=== PATIENT | female | born 1965 | race Caucasian/White ===

== ENCOUNTER 2018-10-02 09:30 | Outpatient (RCR) | payer OTHER, SELFPAY ==
--- NOTE | 2018-09-16 10:47 | HP.PTEVAL_ITS ---
Patient's Visit Information BROOK RAINEY is a 52 year old F referred to Physical Therapy by MANDEEP Haas with a diagnosis of Knee Pain. Date of Evaluation: 09/16/18 Physical Therapist: Lucia Pal - Visit Plan Frequency: 2x /Week Duration: 3 Weeks Plan: Focus on LE and core s/s- HEP as able. Possible meniscal tear- US as modality of choice - Subjective Subjective: Left knee pain for about a year-insidious onset- had a fall but then she was fine- Describes the pain as comes and goes. Pain is along the bottom of the knee cap- does swell but is inconsistent. Best: 0/10 Eases: stay off of it or massage it a little bit, anti-inflammatory. Agg: being on it all day (cleaning, cooking), driving, pushing on it Worst: 8/10. Describes the pain as dull and achy. Tender when she puts pressure on it. No radiating pain- No N/T. 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 PMhx: none meds: none. Did an x-ray on the knee showed nothing. No injections. Start therapy and see where to go from here. Sleep: yes- side sleeper and if it rubs together its painful. - Objective Posture: fair throughout treatment session- mild FH, RS- can correct with verbal cues. Gait: slightly antalgic- decreased stance time on the left LE- poor heel/toe pattern with decreased push off. Stairs: asc/desc 8 recip with 2 HR- asc uses UE for propulsion when left is on the step above. Desc 2 HR and patient comes down sideways. HR/TR: able with UE A but reports discomfort. SLS: 15 seconds then requires UE A- increased muscle activation and reports feels unstable. Palpation: tender along lateral joint line and distal patella. Observation: mild swelling. Special Test: Atilio: positive, Knee cap mobility: good. ROM: 10-120 degrees with discomfort at end range. Strength: Ankle: 5/5, Knee: 4/5 in available range but reports discomfort. Hip: 4/5 throughout and reports discomfort with IR/ER testing in the knee due to the position of the LE. Core: Fair. Flex: HS: mild, Gastroc: mild - Goals Goal 1:: Patient will be I with HEP and progression Goal Time Frame: 4-6 Weeks Goal 2:: Patient will ambulate >300 feet with a normalized gait pattern Goal Time Frame: 4-6 Weeks Goal 3:: Patient will asc/desc 8 stairs recip with 1 HR and good pattern Goal Time Frame: 4-6 Weeks Goal 4:: Patient will report 0/10 pain for 1 full day including working. Goal Time Frame: 4-6 Weeks - Rehabilitation Potential Physical Therapy Diagnosis: Patient presents with hypomobility- she has decreased painfree ROM, strength and muscular endurance. Atilio test is positive for possible meniscus tear- leading to abnormal gait and increased pain with ADL's. Rehabilitation Potential: Fair - Anticipated Interventions Patient/Client Instruction: Educate patient on: Benefits of Fitness Program Therapeutic Exercise to Include: Strength training, Endurance training, Balance training, Body mechanics, Postural training, Flexibilty training, Gait and locomotor training, Dynamic Lumbar Stabilization For the Purpose of:: To improve muscle performance and motor function TENS: Yes Cryotherapy (ice pack, ice massage): Yes Thermo therapy (hot pack): Yes Ultrasound (thermal/non thermal): Yes Thank you for the opportunity to evaluate your patient. For Medicare and Medicare HMO plans, please review the plan of care and approve it. It will need to be FAXED BACK to us at [phone] for Medicare purposes. Please let me know if there are questions or concerns regarding this plan of care. Physician Signature: Date:
--- NOTE | 2018-10-02 09:49 | HP.PTDCSUM_ITS ---
HP - PT D/C Summary It has been my pleasure to treat BROOK RAINEY under orders from MANDEEP Haas, for the diagnosis of Knee Pain for a total of 6 visit(s). Discharge Date: Please see the following information for a summary of their discharge status. - Subjective Subjective: Patient reports the knee is about the same- if she does a lot of activitiy it still really bothers her. Worst: 7/10 Agg: a lot of activity, stairs carrying boxes. Does not have an apt to see the MD - Pain L knee Pain Intensity (Out of 10): 1 - Overall Improvement % Improvement: 25 - Objective Objective/Function: Posture: fair throughout treatment session- mild FH, RS- can correct with verbal cues. Gait: no deviation noted Stairs: asc/desc 8 recip with 1 HR HR/TR: able with UE A but reports discomfort. SLS: 25 seconds then requires UE A- increased muscle activation and reports feels unstable. Palpation: tender along lateral joint line and distal patella. Observation: mi ld swelling. ROM: 10-120 degrees with discomfort at end range. Strength: Ankle: 5/5, Knee: 4+/5 Hip: 4+/5 throughout Core: Fair. Flex: HS: mild, Gastroc: mild - Goals Goal 1:: Patient will be I with [facility] and progression Goal Progress: Goal Met Goal 2:: Patient will ambulate >300 feet with a normalized gait pattern Goal Progress: Goal Met Goal 3:: Patient will asc/desc 8 stairs recip with 1 HR and good pattern Goal Progress: Progressing Goal 4:: Patient will report 0/10 pain for 1 full day including working. Goal Progress: Not Progressing - Plan Plan: [facility]charge to [facility] and return to MD for further evaluation - D/C Information If there are questions or concerns regarding this patient's physical therapy, please feel free to call me at [phone]. Thank you for the referral of this patient. Sincerely, Lucia Pal
== END 2018-10-02 10:04 | disposition home or self-care (01) ==
LOC: PT 09:30
PROVIDERS: Family Provider Family Medicine; PCP Family Medicine; Referring Provider Nurse Practitioner Family; Visit Provider Nurse Practitioner Family
DX: M25.562 Pain in left knee (principal)
CPT/HCPCS: 97035; 97110; 97161; 97164

== ENCOUNTER → 2019-02-20 15:51 | Outpatient (CLI) | payer OTHER, SELFPAY ==
--- NOTE | 2019-02-20 16:08 | EKG12_ITS ---
Test Reason : PRE-OP Blood Pressure : / mmHG Vent. Rate : 060 BPM Atrial Rate : 060 BPM P-R Int : 124 ms QRS Dur : 084 ms QT Int : 446 ms P-R-T Axes : 030 054 043 degrees QTc Int : 446 ms Normal sinus rhythm Normal ECG Confirmed by PAU BERMUDEZ, PAULINA ([id number]), online editor IRVING REILLY ([id number]) on 02/23/2019 9:26:12 AM Referred By: Tato Monzon Confirmed By:PAULINA MAI MD
[2019-02-20 16:30] LABS: Hematocrit 40.7 % (37-47); Hemoglobin 13.5 g/dl (12.0-15.0); Mean Corp Hgb Conc 33.2 g/gl (32-36); Mean Corpuscular Hgb 31.2 pg (27.0-32.0); Mean Platelet Vol. 10.7 fl (6.2-12.0); Platelet Count 191 K/mm3 (150-450); RBC Distribution Width CV 12.8 % (11.6-14.6); RBC Distribution Width SD 44.3 fl (35.1-43.9); Red Blood Count 4.33 M/mm3 (4.2-5.4); White Blood Count 5.5 K/mm3 (4.4-11.0)
[2019-02-20 16:49] LABS: Scan Indicated on CBC? Y/N NO
[2019-02-20 16:52] LABS: Anion Gap 6 (5-15); BUN 14 mg/dL (7-18); BUN/Creat Ratio 20.4 RATIO (10-20); Chloride 103 mmol/L (98-107); Creatinine, Serum 0.68 mg/dL (0.55-1.02); EST Glomerular Filtration Rate 95 mL/min (>60); Est Glom Filt Rate - Afr Amer 115 mL/min (>60); Glucose 101 mg/dL (74-106); Potassium 3.5 mmol/L (3.5-5.1); Sodium Level 140 mmol/L (136-145)
== END ==
PROVIDERS: Family Provider Family Medicine; PCP Family Medicine; Referring Provider Physician Assistant; Visit Provider Physician Assistant
DX: Z01.818 Encounter for other preprocedural examination (principal); Z01.810 Encounter for preprocedural cardiovascular examination
CPT/HCPCS: 36415; 80048; 85027; 93005